=== PATIENT | female | born 1990 | race Caucasian/White ===

== ENCOUNTER 2018-07-31 22:05 | Inpatient (IN) | payer OTHER ==
[~2018-07-31] VITALS: Ht 160 cm; Wt 62.6 kg
[~2018-07-31 22:05] MED LIST: MEDROL4 MG PO
[2018-07-31] MEDS ORDERED: IRON325 MG PO (22:41)
[2018-07-31] MEDS ORDERED: PRENATAL TABLE1 EACH PO (22:41)
== END 2018-08-03 12:57 | disposition home or self-care (01) | DRG 807 ==
LOC: OB/GYN 22:05 → LDR 22:05 → OB/GYN 08-01 17:21
PROVIDERS: ADMIT Obstetrics & Gynecology
PROC: 10E0XZZ Delivery of Products of Conception, External Approach (ICD-10-PCS; principal; 2018-08-01)
PROC: 4A0HXFZ Measurement of Products of Conception, Cardiac Rhythm, External Approach (ICD-10-PCS; 2018-08-01)
DX: O80 Encounter for full-term uncomplicated delivery (principal); Z37.0 Single live birth; Z3A.40 40 weeks gestation of pregnancy